=== PATIENT | male | born 1950 | race Asian ===

== ENCOUNTER → 2018-09-27 18:48 | Outpatient (REF) | payer MEDICARE, OTHER, SELFPAY ==
[2018-09-27 19:25] LABS: Alanine Aminotransferase 53 IU/L (21-72); Albumin 4.2 g/dL (3.5-5.0); Albumin Globulin Ratio 1.5 (1.0-2.8); Alkaline Phosphatase 77 U/L (38-126); Aspartate Aminotransferase 30 IU/L (17-59); BUN Creatinine Ratio 21.1 (6-22); Bilirubin Total 0.7 mg/dL (0.2-1.3); Blood Urea Nitrogen 19 mg/dL (9-20); Calcium 9.1 mg/dL (8.4-10.2); Carbon Dioxide 27 mmol/L (22-32); Chloride 102 mmol/L (98-107); Estimated Glomerular Filt Rate > 60.0 mL/min (>60); Globulin 2.8 g/dL (1.7-4.1); Glucose 105 mg/dL (80-110); HEMOLYSIS < 15 (0-50); Potassium 4.6 mmol/L (3.4-5.1); Sodium 137 mmol/L (137-145)
== END ==
LOC: LAB 18:48
PROVIDERS: PCP Family Medicine Geriatric Medicine; Visit Provider Family Medicine Geriatric Medicine
DX: Z01.812 Encounter for preprocedural laboratory examination (principal); I10 Essential (primary) hypertension
CPT/HCPCS: 36415; 80053

== ENCOUNTER → 2019-10-26 09:30 | Outpatient (CLI) | payer MEDICARE, OTHER, SELFPAY ==
--- NOTE | 2019-10-26 | DI.MRI.S_ITS ---
PROCEDURE: MR HEAD/BRAIN WO CON INDICATIONS: Left side weakness TECHNIQUE: Non-contrast axial T1 spin echo, axial T2 fast spin echo, sagittal and axial FLAIR, coronal T2 fast spin echo, axial gradient echo, axial diffusion and ADC through the brain. COMPARISON: [facility], CT, HEAD WITHOUT CONTRAST, 04/03/2010, 12:08. [facility], CT, HEAD WITHOUT CONTRAST, 04/26/2012, 13:54. [facility], MR, BRAIN WITHOUT CONTRAST, 04/08/2010, 16:37. FINDINGS: Image quality: Excellent. CSF spaces: Ventricles appear symmetric in size and shape. Basal cisterns are patent. No extra-axial fluid collections. Brain: No intracranial bleeds or mass effects. There is cerebral volume loss for age. There is mild are periventricular and deep white matter chronic small vessel ischemic changes. Brainstem appears normal. Diffusion-weighted images show no acute ischemic insults. No chronic ischemic insults. Normal intravascular flow voids are present. Skull and face: Calvarial bone marrow is normal in signal. Orbits are normal. Sinuses: The right maxillary sinus is completely opacified. There is marked mucosal thickening of the left maxillary sinus. There is patchy chronic bilateral ethmoid opacification. The right frontal sinus has mucosal thickening. There is hypoaeration of the left frontal sinus. IMPRESSION: 1. Extensive sinus disease. 2. Mild small vessel ischemic change. 3. No evidence acute stroke, hemorrhage, or mass. Dictated by: Ryan Waller M.D. on 10/26/2019 at 10:43 Approved by: Ryan Waller M.D. on 10/26/2019 at 10:48
== END ==
PROVIDERS: PCP Family Medicine; Referring Provider Family Medicine; Visit Provider Family Medicine Geriatric Medicine
DX: I63.9 Cerebral infarction, unspecified (principal); R53.1 Weakness; J32.8 Other chronic sinusitis
CPT/HCPCS: 70551